=== PATIENT | female | born 1955 | race Caucasian/White ===

== ENCOUNTER 2017-08-07 11:43 | Emergency (ER) | payer MEDICARE ==
[~2017-08-07] VITALS: Ht 160 cm; Wt 71.0 kg
[2017-08-07 11:48] VITALS: BP 186/91; RESP 18; TEMP 97.8; O2SAT 99
[2017-08-07] MEDS ORDERED: METF1000 PO (12:05)
[2017-08-07] MEDS ORDERED: BRIL90TA PO (12:05)
[2017-08-07] MEDS ORDERED: ATEN25TA PO (12:05)
[2017-08-07] MEDS ORDERED: SIMV80TA PO (12:05)
[2017-08-07] MEDS ORDERED: PERC10TA27 PO (12:05)
[2017-08-07] MEDS ORDERED: OMEP40CA2 (12:05)
[2017-08-07] MEDS ORDERED: HYDR50TA3 PO (12:05)
[2017-08-07] MEDS ORDERED: GLIP5TAB8 PO (12:05)
[2017-08-07] MEDS ORDERED: RANO500 PO (12:05)
[2017-08-07] MEDS ORDERED: ASPI81CH6 CHEW (12:05)
[2017-08-07 12:10] VITALS: BP 159/73; PULSE 70; PULSE 73; RESP 18; O2SAT 97; O2SAT 98
--- NOTE | 2017-08-07 12:25 | PD ---
HPI Chief Complaint: Complaint Time Seen by Provider: 11:56 Travel History International Travel<30 days: No Contact w/Intl Traveler<30days: No Traveled to known affect area: No History of Present Illness HPI 61-year-old female that presents to the ED for evaluation of possible UTI. Per patient she has had polyuria and urgency but not really dysuria for the past 2 days. Per patient symptoms started last night. Per patient is now unusual for her to have to go frequently as she does state that she drinks a lot of water but what concerned her is that she has to go more frequently now and today she started seeing blood and darkening of the urine. She states that she has not had a UTI in some time. What concerned her a little bit as well as that she started having chest pain that she describes as pressure when she urinates. Otherwise she has no pain. She states that she has a history of heart disease and has stents in her heart. She takes blood thinners. Denies any back pain or neck pain. Denies any symptoms at this time. No fevers chills or sweats but states that she feels "weird". Denies any history of kidney stone. She states that she has urgency and feels like she does not empty her bladder and has to go frequently. This is new per patient. When the pressure comes up pain per patient is 4 out of 10. PFSH Past Medical History Cardiovascular Problems: Yes High Cholesterol: Yes Chest Pain: Yes Diabetes: Yes Patient Takes Glucophage: Yes Hypertension: Yes Medical other: Yes (THORACIC OUTLET SYNDROME) Influenza Vaccination: Yes Past Surgical History Cholecystectomy: Yes Coronary Stent: Yes (X6) Hysterectomy: Yes Thoracic Surgery: Yes (RIB REMOVED) Social History Alcohol Use: Yes Tobacco Use: No Substance Use: No Allergies-Medications (Allergen,Severity, Reaction): Coded Allergies: Penicillins (Verified Allergy, Unknown, 08/07/17) codeine (Verified Allergy, Unknown, 08/07/17) Reported Meds & Prescriptions Reported Meds & Active Scripts Active Pyridium (Phenazopyridine HCl) 100 Mg Tab 100 Mg PO Q8H PRN Cipro (Ciprofloxacin HCl) 500 Mg Tab 500 Mg PO BID 10 Days Reported Glipizide 5 Mg Tab 2.5 Mg PO DAILY Take 30 minutes before a meal Percocet (Oxycodone-Acetaminophen) 10-325 mg Tab 1 Tab PO Q6H PRN Aspirin Low Dose (Aspirin) 81 Mg Chew 81 Mg CHEW DAILY Omeprazole 40 Mg Cap 40 Mg BID Simvastatin 80 Mg Tab 80 Mg PO DAILY Ranexa ER 12 HR (Ranolazine) 500 Mg Tab 500 Mg PO BID Metformin (Metformin HCl) 1,000 Mg Tab 1,000 Mg PO BIDPC Hydrochlorothiazide 50 Mg Tab 50 Mg PO DAILY Atenolol 25 Mg Tab 25 Mg PO DAILY Brilinta (Ticagrelor) 90 Mg Tab 90 Mg PO BID Review of Systems Except as stated in HPI: all other systems reviewed are Neg Physical Exam Narrative GENERAL: Well groomed normal sized women. SKIN: Warm and dry. HEAD: Atraumatic. Normocephalic. EYES: Pupils equal and round. No scleral icterus. No injection or drainage. ENT: No nasal bleeding or discharge. Mucous membranes pink and moist. Tongue is midline. No uvula deviation. NECK: Trachea midline. No JVD. CARDIOVASCULAR: Regular rate and rhythm. No murmurs, S3, S4. RESPIRATORY: No accessory muscle use. Clear to auscultation. Breath sounds equal bilaterally. GASTROINTESTINAL: Abdomen soft, non-tender, nondistended. Hepatic and splenic margins not palpable. MUSCULOSKELETAL: Extremities without clubbing, cyanosis, or edema. No obvious deformities. Full range of motion of the upper and lower extremities bilaterally. 2+ pulses bilaterally. NEUROLOGICAL: Awake and alert. No obvious cranial nerve deficits. Motor grossly within normal limits. Five out of 5 muscle strength in the arms and legs. Normal speech. PSYCHIATRIC: Appropriate mood and affect; insight and judgment normal. Data Data Last Documented VS Vital Signs Date Time Temp Pulse Resp B/P (MAP) Pulse Ox O2 Delivery O2 Flow Rate FiO2 08/07/17 12:10 70 18 159/73 (101) 98 Room Air 08/07/17 11:48 97.8 Orders Orders Urinalysis - C+S If Indicated (08/07/17 11:56) Electrocardiogram (08/07/17 11:57) Complete Blood Count With Diff (08/07/17 11:57) Comprehensive Metabolic Panel (08/07/17 11:57) Ckmb (Isoenzyme) Profile (08/07/17 11:57) Troponin I (08/07/17 11:57) Prothrombin Time / Inr (Pt) (08/07/17 11:57) Act Partial Throm Time (Ptt) (08/07/17 11:57) Magnesium (Mg) (08/07/17 11:57) Iv Access Insert/Monitor (08/07/17 11:57) Ecg Monitoring (08/07/17 11:57) Oximetry (08/07/17 11:57) Urine Culture (08/07/17 12:10) Ciprofloxacin 400 Mg Premix (Cipro 400 M (08/07/17 13:15) Troponin I (08/07/17 13:20) Labs Laboratory Tests Test 08/07/17 12:10 08/07/17 12:15 Urine Color LOUIE Urine Turbidity CLOUDY Urine pH 5.5 Urine Specific [place] 1.013 Urine Protein 100 mg/dL Urine Glucose (UA) NEG mg/dL Urine Ketones TRACE mg/dL Urine Occult Blood MOD Urine Nitrite NEG Urine Bilirubin NEG Urine Urobilinogen LESS THAN 2.0 MG/DL Urine Leukocyte Esterase TRACE Urine RBC /hpf Urine WBC /hpf Urine WBC Clumps MOD Urine Squamous Epithelial Cells 8 /hpf Urine Bacteria FEW /hpf Microscopic Urinalysis Comment CULTURE INDICATED White Blood Count 13.8 TH/MM3 Red Blood Count 4.15 MIL/MM3 Hemoglobin 12.4 GM/DL Hematocrit 36.2 % Mean Corpuscular Volume 87.4 FL Mean Corpuscular Hemoglobin 29.9 PG Mean Corpuscular Hemoglobin Concent 34.2 % Red Cell Distribution Width 13.6 % Platelet Count 174 TH/MM3 Mean Platelet Volume 9.8 FL Neutrophils (%) (Auto) 73.1 % Lymphocytes (%) (Auto) 17.0 % Monocytes (%) (Auto) 8.7 % Eosinophils (%) (Auto) 0.7 % Basophils (%) (Auto) 0.5 % Neutrophils # (Auto) 10.1 TH/MM3 Lymphocytes # (Auto) 2.3 TH/MM3 Monocytes # (Auto) 1.2 TH/MM3 Eosinophils # (Auto) 0.1 TH/MM3 Basophils # (Auto) 0.1 TH/MM3 CBC Comment DIFF FINAL Differential Comment Prothrombin Time 9.9 SEC Prothromb Time International Ratio 1.0 RATIO Activated Partial Thromboplast Time 23.8 SEC Blood Urea Nitrogen 28 MG/DL Creatinine 1.19 MG/DL Random Glucose 139 MG/DL Total Protein 8.0 GM/DL Albumin 4.0 GM/DL Calcium Level 9.3 MG/DL Magnesium Level 1.2 MG/DL Alkaline Phosphatase 70 U/L Aspartate Amino Transf (AST/SGOT) 22 U/L Alanine Aminotransferase (ALT/SGPT) 27 U/L Total Bilirubin 0.3 MG/DL Sodium Level 140 MEQ/L Potassium Level 4.0 MEQ/L Chloride Level 103 MEQ/L Carbon Dioxide Level 23.8 MEQ/L Anion Gap 13 MEQ/L Estimat Glomerular Filtration Rate 46 ML/MIN Total Creatine Kinase 57 U/L Troponin I LESS THAN 0.02 NG/ML MDM Medical Decision Making Medical Screen Exam Complete: Yes Emergency Medical Condition: Yes Medical Record Reviewed: Yes Interpretation(s) EKG shows sinus rhythm with no sign of acute ischemia or arrhythmia noted by me and attending. CBC & BMP Diagram 08/07/17 12:15 Total Protein 8.0, Albumin 4.0, Calcium Level 9.3, Magnesium Level 1.2 L, Alkaline Phosphatase 70, Aspartate Amino Transf (AST/SGOT) 22, Alanine Aminotransferase (ALT/SGPT) 27, Total Bilirubin 0.3 UA shows signs of UTI. Troponin and CK-MB negative. Differential Diagnosis Kidney stone versus kidney infection versus UTI versus sepsis versus a typical chest pain versus ACS Narrative Course 61-year-old female that presents to the ED for evaluation of possible UTI. Patient was properly examined and was found to have signs and symptoms concerning for kidney infection. Chest pain appears to be very atypical. Patient only has discomfort when she urinates. Could be from straining. She does have a significant heart history. We will do troponin and EKG. labs ordered. Labs and EKG showed no sign of acute disease alert and what appears to be UTI. Second troponin will be ordered to rule out any sign of acute cardiac disease although this appears to be less likely. Patient was started on Cipro IV. Second troponin was negative for acute disease. Patient was reassured. At this time patient will be treated for this with Cipro and Pyridium. Told to follow-up with PCP. See ED if worsening symptoms. Diagnosis Primary Impression: Cystitis Additional Impression: Atypical chest pain Patient Instructions: General Instructions Additional Instructions: Take medication as prescribed. Follow-up with PCP. Drink plenty of fluids. See ED if worsening symptoms. Med/Other Pt SpecificInfo: Prescription(s) given Scripts Phenazopyridine (Pyridium) 100 Mg Tab 100 MG PO Q8H Y for DYSURIA, #15 TAB 0 Refills Prov: Anthony Beal MD 08/07/17 Ciprofloxacin (Cipro) 500 Mg Tab 500 MG PO BID for Infection for 10 Days, #20 TAB 0 Refills Prov: Anthony Beal MD 08/07/17 Disposition: 01 DISCHARGE HOME Condition: Willis Engel Aug 07, 2017 12:25
[2017-08-07 12:27] LABS: AUTOMATED NEUTROPHIL # 10.1 TH/MM3 (1.8-7.7); BASOPHIL # 0.1 TH/MM3 (0-0.2); BASOPHIL % 0.5 % (0.0-2.0); EOSINOPHIL # 0.1 TH/MM3 (0-0.4); EOSINOPHIL % 0.7 % (0.0-4.0); HEMATOCRIT 36.2 % (35.0-46.0); HEMOGLOBIN 12.4 GM/DL (11.6-15.3); LYMPHOCYTE # 2.3 TH/MM3 (1.0-4.8); MEAN CELL VOLUME 87.4 FL (80.0-100.0); MEAN CORPUSCULAR HEMOGLOBIN 29.9 PG (27.0-34.0); MEAN CORPUSCULAR HGB CONC 34.2 % (32.0-36.0); MEAN PLATELET VOLUME 9.8 FL (7.0-11.0); MONO % 8.7 % (0.0-8.0); MONOCYTE # 1.2 TH/MM3 (0-0.9); NEUT % 73.1 % (16.0-70.0); PLATELET COUNT 174 TH/MM3 (150-450); RED BLOOD COUNT 4.15 MIL/MM3 (4.00-5.30); RED CELL DISTRIBUTION WIDTH 13.6 % (11.6-17.2); WHITE BLOOD COUNT 13.8 TH/MM3 (4.0-11.0)
[2017-08-07 12:35] LABS: PROTHROMBIN TIME - PATIENT 9.9 SEC (9.8-11.6)
[2017-08-07 12:45] LABS: ALT (GPT) 27 U/L (10-53); AST (GOT) 22 U/L (15-37); BICARBONATE 23.8 MEQ/L (21.0-32.0); BLOOD UREA NITROGEN 28 MG/DL (7-18); CALCIUM 9.3 MG/DL (8.5-10.1); CHLORIDE 103 MEQ/L (98-107); CREATININE 1.19 MG/DL (0.50-1.00); GLOMERULAR FILTRATION RATE 46 ML/MIN (>89); GLUCOSE,RANDOM 139 MG/DL (74-106); MAGNESIUM 1.2 MG/DL (1.5-2.5); SODIUM (NA) 140 MEQ/L (136-145)
[2017-08-07 12:49] LABS: ALKALINE PHOSPHATASE 70 U/L (45-117); TOTAL BILIRUBIN ADULT 0.3 MG/DL (0.2-1.0); TROPONIN I LESS THAN 0.02 NG/ML (0.02-0.05)
[2017-08-07 12:59] LABS: BACTERIA, URINE FEW /hpf; BILIRUBIN, URINE NEG (NEG); BLOOD, URINE MOD (NEG); GLUCOSE,URINE NEG (NEG); KETONE, URINE TRACE mg/dL (NEG); NITRITE,URINE NEG (NEG); PH, URINE 5.5 (5.0-8.5); SQUAMOUS EPITHELIAL CELL URINE 8 /hpf (0-5); URINE LEUKOCYTE ESTERASE TRACE (NEG); WHITE BLOOD CELL CLUMPS MOD
[2017-08-07 13:02] LABS: URINE COLOR AMBER (YELLW/STRAW)
[2017-08-07] MEDS ORDERED: CIPR-9 PO (13:08)
[2017-08-07] MEDS ORDERED: PHEN0.4T PO (13:08)
[2017-08-07] MEDS ORDERED: CIPROFLOXACIN 400 MG PREMIX 200 ML IV ONE (13:15)
[2017-08-07 15:44] VITALS: BP 142/69; PULSE 68; RESP 17; O2SAT 98
--- NOTE | 2017-08-07 16:42 | PD ---
Data Data Last Documented VS Vital Signs Date Time Temp Pulse Resp B/P (MAP) Pulse Ox O2 Delivery O2 Flow Rate FiO2 08/07/17 15:44 68 17 142/69 (93) 98 Room Air 08/07/17 11:48 97.8 Orders Orders Urinalysis - C+S If Indicated (08/07/17 11:56) Electrocardiogram (08/07/17 11:57) Complete Blood Count With Diff (08/07/17 11:57) Comprehensive Metabolic Panel (08/07/17 11:57) Ckmb (Isoenzyme) Profile (08/07/17 11:57) Troponin I (08/07/17 11:57) Prothrombin Time / Inr (Pt) (08/07/17 11:57) Act Partial Throm Time (Ptt) (08/07/17 11:57) Magnesium (Mg) (08/07/17 11:57) Iv Access Insert/Monitor (08/07/17 11:57) Ecg Monitoring (08/07/17 11:57) Oximetry (08/07/17 11:57) Urine Culture (08/07/17 12:10) Ciprofloxacin 400 Mg Premix (Cipro 400 M (08/07/17 13:15) Troponin I (08/07/17 13:20) Ed Discharge Order (08/07/17 15:33) Labs Laboratory Tests Test 08/07/17 12:10 08/07/17 12:15 08/07/17 14:35 Urine Color LOUIE Urine Turbidity CLOUDY Urine pH 5.5 Urine Specific [place] 1.013 Urine Protein 100 mg/dL Urine Glucose (UA) NEG mg/dL Urine Ketones TRACE mg/dL Urine Occult Blood MOD Urine Nitrite NEG Urine Bilirubin NEG Urine Urobilinogen LESS THAN 2.0 MG/DL Urine Leukocyte Esterase TRACE Urine RBC /hpf Urine WBC /hpf Urine WBC Clumps MOD Urine Squamous Epithelial Cells 8 /hpf Urine Bacteria FEW /hpf Microscopic Urinalysis Comment CULTURE INDICATED White Blood Count 13.8 TH/MM3 Red Blood Count 4.15 MIL/MM3 Hemoglobin 12.4 GM/DL Hematocrit 36.2 % Mean Corpuscular Volume 87.4 FL Mean Corpuscular Hemoglobin 29.9 PG Mean Corpuscular Hemoglobin Concent 34.2 % Red Cell Distribution Width 13.6 % Platelet Count 174 TH/MM3 Mean Platelet Volume 9.8 FL Neutrophils (%) (Auto) 73.1 % Lymphocytes (%) (Auto) 17.0 % Monocytes (%) (Auto) 8.7 % Eosinophils (%) (Auto) 0.7 % Basophils (%) (Auto) 0.5 % Neutrophils # (Auto) 10.1 TH/MM3 Lymphocytes # (Auto) 2.3 TH/MM3 Monocytes # (Auto) 1.2 TH/MM3 Eosinophils # (Auto) 0.1 TH/MM3 Basophils # (Auto) 0.1 TH/MM3 CBC Comment DIFF FINAL Differential Comment Prothrombin Time 9.9 SEC Prothromb Time International Ratio 1.0 RATIO Activated Partial Thromboplast Time 23.8 SEC Blood Urea Nitrogen 28 MG/DL Creatinine 1.19 MG/DL Random Glucose 139 MG/DL Total Protein 8.0 GM/DL Albumin 4.0 GM/DL Calcium Level 9.3 MG/DL Magnesium Level 1.2 MG/DL Alkaline Phosphatase 70 U/L Aspartate Amino Transf (AST/SGOT) 22 U/L Alanine Aminotransferase (ALT/SGPT) 27 U/L Total Bilirubin 0.3 MG/DL Sodium Level 140 MEQ/L Potassium Level 4.0 MEQ/L Chloride Level 103 MEQ/L Carbon Dioxide Level 23.8 MEQ/L Anion Gap 13 MEQ/L Estimat Glomerular Filtration Rate 46 ML/MIN Total Creatine Kinase 57 U/L Troponin I LESS THAN 0.02 NG/ML LESS THAN 0.02 NG/ML MDM Medical Record Reviewed: Yes Supervised Visit with MICHELLE: Yes Narrative Course I, Dr. Beal, have reviewed the advance practice practitioner's documentation and am in agreement, met with the patient face to face, made the diagnosis, and the medical decision making was done by me. *My assessment and Findings: Vital Signs Date Time Temp Pulse Resp B/P (MAP) Pulse Ox O2 Delivery O2 Flow Rate FiO2 08/07/17 15:44 68 17 142/69 (93) 98 Room Air 08/07/17 15:44 68 17 142/69 (93) 98 08/07/17 12:10 70 18 159/73 (101) 98 Room Air 08/07/17 12:10 73 18 159/73 (101) 97 Room Air 08/07/17 12:05 18 08/07/17 11:48 97.8 18 186/91 (122) 99 CBC & BMP Diagram 08/07/17 12:15 Total Protein 8.0, Albumin 4.0, Calcium Level 9.3, Magnesium Level 1.2 L, Alkaline Phosphatase 70, Aspartate Amino Transf (AST/SGOT) 22, Alanine Aminotransferase (ALT/SGPT) 27, Total Bilirubin 0.3 Urinalysis shows UTI Troponin is less than 0.02 twice Please refer to mid-level note. The patient will be discharged with Cipro Diagnosis Primary Impression: Cystitis Additional Impression: Atypical chest pain Patient Instructions: General Instructions, Urinary Tract Infection in Women ( ED) Departure Forms: Tests/Procedures Additional Instruction: Take medication as prescribed. Follow-up with PCP. Drink plenty of fluids. See ED if worsening symptoms. Scripts Phenazopyridine (Pyridium) 100 Mg Tab 100 MG PO Q8H Y for DYSURIA, #15 TAB 0 Refills Prov: Anthony Beal MD 08/07/17 Ciprofloxacin (Cipro) 500 Mg Tab 500 MG PO BID for Infection for 10 Days, #20 TAB 0 Refills Prov: Anthony Beal MD 08/07/17 Disposition: 01 DISCHARGE HOME Condition: Stable Anthony Beal MD Aug 07, 2017 16:42
--- NOTE | 2017-08-08 00:24 | EKG ---
Date Performed: 08/07/2017 Time Performed: 12:08:06 PTAGE: 61 years EKG: Sinus rhythm NON-SPECIFIC ST/T WAVE CHANGES BORDERLINE ECG NO PREVIOUS TRACING DOCTOR: Jn Beal Interpretating Date/Time 08/08/2017 00:23:08
== END 2017-08-07 15:53 | disposition home or self-care (01) ==
LOC: NEPE 11:43
DX: N30.90 Cystitis, unspecified without hematuria (principal); R07.89 Other chest pain; E78.00 Pure hypercholesterolemia, unspecified; E11.9 Type 2 diabetes mellitus without complications; I10 Essential (primary) hypertension; Z79.84 Long term (current) use of oral hypoglycemic drugs; Z79.899 Other long term (current) drug therapy
CPT/HCPCS: 80053; 81001; 82550; 83735; 84484; 85025; 85610; 85730; 87077; 87086; 87186; 93005; 96365; 99284; J0744

== ENCOUNTER 2018-05-31 10:12 | Observation (INO) ==
[2018-05-31] MEDS ORDERED: Aspirin 325 MG Tablet PO ONE (10:27)
[2018-05-31 10:46] LABS: Baso % (Auto) 0.5 % (0.0-2.0); Eos # (Auto) 0.1 th/mm3 (0.0-0.4); Eos % (Auto) 1.3 % (0.0-4.0); Hematocrit 38.7 % (35.0-46.0); Hemoglobin 13.3 gm/dL (11.6-15.3); Lymph # (Auto) 2.3 th/mm3 (1.0-4.8); Lymph % (Auto) 34.8 % (9.0-44.0); Mean Corpuscular HGB Conc 34.5 % (32.0-36.0); Mean Corpuscular Hemoglobin 31.1 pg (27.0-34.0); Mean Corpuscular Volume 90.2 fL (80.0-100.0); Mono # (Auto) 0.7 th/mm3 (0.0-0.9); Mono % (Auto) 11.3 % (0.0-8.0); Neut # (Auto) 3.4 th/mm3 (1.8-7.7); Neut % (Auto) 52.1 % (16.0-70.0); Platelet Count 195 th/mm3 (150-450); Red Blood Count 4.28 mil/mm3 (4.00-5.30); White Blood Count 6.5 th/mm3 (4.0-11.0)
--- NOTE | 2018-05-31 11:02 | ED ---
HPI General Chief Complaint: Chest Pain Stated Complaint: Chest pain Time Seen by Provider: 05/31/18 10:27 Source: patient and family Mode of arrival: ambulatory Limitations: no limitations History of Present Illness HPI narrative: 62 y/o female notes intermittent chest pain for the past couple weeks. She states got worse this morning so came here. was scheduled for a cath today with her security professionals dr moreland. she denies other symptoms MD complaint: Reports chest pain STEMI Alert: No Onset (ago): week(s) Duration: intermittent Pain location: Reports left chest Severity: moderate Quality: Reports tightness Pain radiation: Reports none Relieving factors: nothing Exacerbating factors: exertion Related Data Home Medications Medication Instructions Recorded Confirmed aspirin [Aspir-81] 81 mg PO DAILY 05/31/18 05/31/18 atenolol 25 mg PO DAILY 05/31/18 05/31/18 clopidogrel 75 mg PO DAILY 05/31/18 05/31/18 dulaglutide [Trulicity] 1.5 mg SUBCUT QWEEK 05/31/18 05/31/18 hydrochlorothiazide 50 mg PO DAILY 05/31/18 05/31/18 metformin 1,000 mg PO QPM 05/31/18 05/31/18 omeprazole 40 mg PO BID 05/31/18 05/31/18 oxycodone-acetaminophen 1 tab PO Q6H PRN 05/31/18 05/31/18 ranolazine [Ranexa] 500 mg PO BID 05/31/18 05/31/18 Allergies Allergy/AdvReac Type Severity Reaction Status Date / Time codeine Allergy Unknown Vomiting Verified 05/31/18 10:28 Penicillins Allergy Unknown Vomiting Verified 05/31/18 10:28 Review of Systems ROS: all other systems reviewed are negative [facility] Medical History Medical History FH: cholecystectomy (Acute) GERD (gastroesophageal reflux disease) (Acute) H/O: hysterectomy (Acute) Hypercholesteremia (Acute) Surgical History Surgical History Hx of cardiac cath (Acute) Social History Social History Substance History: No History of Abuse Second Hand Smoke Exposure: No Smoking Status: Former smoker How Often Do You Have a Drink Containing Alcohol: 2 to 4 times a month Recent Travel in [email or web address] within the Last 8 Weeks: No Recent Out of Country Travel within the Last 8 Weeks: No Immunization History Tetanus Immunization: Unsure Exam Narrative Exam Narrative: GENERAL: 62 y/o female in no apparent distress SKIN: Focused skin assessment warm/dry. HEAD: Atraumatic. Normocephalic. EYES: Pupils equal and round. No scleral icterus. No injection or drainage. ENT: No nasal bleeding or discharge. Mucous membranes pink and moist. NECK: Trachea midline. No JVD. CARDIOVASCULAR: Regular rate and rhythm. No murmur appreciated. RESPIRATORY: No accessory muscle use. Clear to auscultation. Breath sounds equal bilaterally at apices. GASTROINTESTINAL: Abdomen soft, non-tender, nondistended. MUSCULOSKELETAL: No obvious deformities. No clubbing. No cyanosis. NEUROLOGICAL: Awake and alert. No obvious cranial nerve deficits. Motor grossly within normal limits. Normal speech. PSYCHIATRIC: Appropriate mood and affect; insight and judgment normal. Course Reevaluation(s) Reevaluation #1: patient updated and agrees to admit Reevaluation #2: labor gang supervisor states not on schedule today or tommorrow Consultations Consultation #1: dr moreland states to admit and call labor gang supervisor to find out who put on schedule Consultation #2: dr leggett agrees to admit Initial Documented Vital Signs Temperature 97.7 F 05/31/18 10:20 Pulse Rate 60 05/31/18 10:20 Blood Pressure 211/93 H 05/31/18 10:20 Pulse Oximetry 98 05/31/18 10:20 Last Documented Vital Signs Temperature 97.7 F 05/31/18 10:20 Pulse Rate 55 L 05/31/18 11:10 Respiratory Rate 16 05/31/18 11:10 Blood Pressure 163/83 H 05/31/18 11:10 Pulse Oximetry 97 05/31/18 11:10 Medical Decision Making MDM Narrative Medical decision making narrative: will check labs, cxr and dose with nitro and aspirin and reeval Medical Screen Exam Complete: Yes Emergency Medical Condition: Yes Differential Diagnosis Differential Diagnosis: cardiac, musculoskeletal, gasritis... Lab Data Result diagrams: 05/31/18 10:30 05/31/18 10:30 Lab Results 05/31/18 05/31/18 05/31/18 Range/Units 10:30 10:30 10:30 WBC 6.5 (4.0-11.0) th/mm3 RBC 4.28 (4.00-5.30) mil/mm3 Hgb 13.3 (11.6-15.3) gm/dL Hct 38.7 (35.0-46.0) % MCV 90.2 (80.0-100.0) fL MCH 31.1 (27.0-34.0) pg MCHC 34.5 (32.0-36.0) % RDW 14.0 (11.6-17.2) % Plt Count 195 (150-450) th/mm3 MPV 10.0 (7.0-11.0) fL Neut % (Auto) 52.1 (16.0-70.0) % Lymph % (Auto) 34.8 (9.0-44.0) % Charles % (Auto) 11.3 H (0.0-8.0) % Eos % (Auto) 1.3 (0.0-4.0) % Baso % (Auto) 0.5 (0.0-2.0) % Neut # (Auto) 3.4 (1.8-7.7) th/mm3 Lymph # (Auto) 2.3 (1.0-4.8) th/mm3 Charles # (Auto) 0.7 (0.0-0.9) th/mm3 Eos # (Auto) 0.1 (0.0-0.4) th/mm3 Baso # (Auto) 0.0 (0.0-0.2) th/mm3 WBC Differential . Differential Comment Auto diff final PT (9.8-11.6) sec INR Ratio APTT (23.4-31.7) sec Sodium 139 (136-145) meq/L Potassium 4.4 (3.5-5.1) meq/L Chloride 102 (98-107) meq/L Carbon Dioxide 27.5 (21.0-32.0) meq/L Anion Gap 10 (5-15) meq/L BUN 27 H (7-18) mg/dL Creatinine 1.30 H (0.50-1.00) mg/dL Estimated GFR 42 L (>89) mL/min Random Glucose 115 H (74-106) mg/dL Calcium 9.5 (8.5-10.1) mg/dL Magnesium 1.5 (1.5-2.5) mg/dL Total Bilirubin 0.4 (0.2-1.0) mg/dL AST 32 (15-37) U/L ALT 23 (10-53) U/L Alkaline Phosphatase 66 (45-117) U/L Total Creatine Kinase 77 (26-192) U/L Troponin I Less than 0.02 L (0.02-0.05) ng/mL B-Natriuretic Peptide 75 (0-100) pg/mL Total Protein 8.3 H (6.4-8.2) g/dL Albumin 4.1 (3.4-5.0) g/dL 05/31/18 Range/Units 11:05 WBC (4.0-11.0) th/mm3 RBC (4.00-5.30) mil/mm3 Hgb (11.6-15.3) gm/dL Hct (35.0-46.0) % MCV (80.0-100.0) fL MCH (27.0-34.0) pg MCHC (32.0-36.0) % RDW (11.6-17.2) % Plt Count (150-450) th/mm3 MPV (7.0-11.0) fL Neut % (Auto) (16.0-70.0) % Lymph % (Auto) (9.0-44.0) % Charles % (Auto) (0.0-8.0) % Eos % (Auto) (0.0-4.0) % Baso % (Auto) (0.0-2.0) % Neut # (Auto) (1.8-7.7) th/mm3 Lymph # (Auto) (1.0-4.8) th/mm3 Charles # (Auto) (0.0-0.9) th/mm3 Eos # (Auto) (0.0-0.4) th/mm3 Baso # (Auto) (0.0-0.2) th/mm3 WBC Differential Differential Comment PT 10.0 (9.8-11.6) sec INR 1.0 Ratio APTT 23.9 (23.4-31.7) sec Sodium (136-145) meq/L Potassium (3.5-5.1) meq/L Chloride (98-107) meq/L Carbon Dioxide (21.0-32.0) meq/L Anion Gap (5-15) meq/L BUN (7-18) mg/dL Creatinine (0.50-1.00) mg/dL Estimated GFR (>89) mL/min Random Glucose (74-106) mg/dL Calcium (8.5-10.1) mg/dL Magnesium (1.5-2.5) mg/dL Total Bilirubin (0.2-1.0) mg/dL AST (15-37) U/L ALT (10-53) U/L Alkaline Phosphatase (45-117) U/L Total Creatine Kinase (26-192) U/L Troponin I (0.02-0.05) ng/mL B-Natriuretic Peptide (0-100) pg/mL Total Protein (6.4-8.2) g/dL Albumin (3.4-5.0) g/dL Imaging Data Radiologist's impression: Chest X-Ray 05/31/18 10:27 CONCLUSION: No acute cardiopulmonary disease. Discharge Plan Discharge Disposition Patient Disposition: ED Admit(ED Internal Use Only) Discharge Details Diagnosis: Chest pain Physicians Team ED Provider: Madyson Pinzon Primary Care Provider: Nara Edgar Rxs /Orders / Referrals /Forms Prescriptions: No Action hydrochlorothiazide 50 mg Tablet 50 mg PO DAILY RF: 0 atenolol 25 mg Tablet 25 mg PO DAILY RF: 0 clopidogrel 75 mg Tablet 75 mg PO DAILY RF: 0 omeprazole 40 mg Capsule,Delayed Release(Dr/Ec) 40 mg PO BID RF: 0 aspirin [Aspir-81] 81 mg Tablet,Delayed Release (Dr/Ec) 81 mg PO DAILY RF: 0 oxycodone-acetaminophen 10-325 mg Tablet 1 tab PO Q6H PRN (Reason: Pain) RF: 0 metformin 1,000 mg Tablet Extended Release 24hr 1,000 mg PO QPM RF: 0 ranolazine [Ranexa] 500 mg Tablet Extended Release 12 Hr 500 mg PO BID RF: 0 dulaglutide [Trulicity] 1.5 mg/0.5 mL Pen Injector 1.5 mg SUBCUT QWEEK RF: 0 Discharge Instructions Patient Printed Instructions: Chest Pain (ED) Discharge Interventions Interventions: Vital Signs Last Done: 05/31/18 10:20 Status ED Status: Pending Admission
--- NOTE | 2018-05-31 11:05 | XR ---
EXAM DATE: 05/31/2018 11:03 AM EST AGE/SEX: 62 years / Female INDICATIONS: Chest pain. CLINICAL DATA: This is the patient's initial encounter. Patient reports that signs and symptoms have been present for 1 day and indicates a pain score of 4/10. MEDICAL/SURGICAL HISTORY: None. None. COMPARISON: . FINDINGS: The cardiac silhouette is normal in transverse diameter. The lungs are free of acute parenchymal opac ity. No effusions are identified. There is prominence of the aortic knob is with calcification charac teristic of atherosclerotic vascular disease. CONCLUSION: No acute cardiopulmonary disease. Electronically signed by: Jordan Hernandez MD Board Certified Radiologist 05/31/2018 11:04 AM EST
[2018-05-31 11:20] LABS: Alanine Aminotransferase 23 U/L (10-53); Albumin 4.1 g/dL (3.4-5.0); Alkaline Phosphatase 66 U/L (45-117); Anion Gap 10 meq/L (5-15); Aspartate Aminotransferase 32 U/L (15-37); Blood Urea Nitrogen 27 mg/dL (7-18); Calcium 9.5 mg/dL (8.5-10.1); Carbon Dioxide 27.5 meq/L (21.0-32.0); Chloride 102 meq/L (98-107); Glomerular Filtration Rate 42 mL/min (>89); Glucose,Random 115 mg/dL (74-106); Magnesium 1.5 mg/dL (1.5-2.5); Sodium 139 meq/L (136-145); Total Protein 8.3 g/dL (6.4-8.2)
[2018-05-31 11:21] LABS: Creatine Kinase 77 U/L (26-192); Potassium 4.4 meq/L (3.5-5.1)
[2018-05-31 11:27] LABS: Activated Partial Thrombo Time 23.9 sec (23.4-31.7)
[2018-05-31] MEDS ORDERED: Acetaminophen 500 MG Tablet PO ONE (11:41)
[2018-05-31] MEDS ORDERED: Dextrose 50% in Water 50 ML Vial IV.PUSH PRN (12:30)
[2018-05-31] MEDS ORDERED: Acetaminophen 325 MG Tablet PO PRN (12:31)
[2018-05-31] MEDS ORDERED: Morphine Inj 4 MG/ML Vial IV.PUSH PRN (12:33)
[2018-05-31] MEDS: oxyCODONE/Acetaminophen 10/325 Tablet PO PRN ×2 (13:44→21:30)
[2018-05-31] MEDS: Heparin - SQ 10,000 UNITS/ML Vial SQ SCH ×3 (13:45→21:30)
--- NOTE | 2018-05-31 14:10 | P.HPIM ---
History of Present Illness Primary Care Physician: Nara Edgar MD Chief Complaint: Chest pressure History of Present Illness: The patient is a 62-year-old female with a past medical history of CAD status post six stents who is presenting to the hospital with chest pressure. The patient says that her last stent was about 2 years ago. She says over the past month she has been experiencing chest pressure. She says the chest pressure is really located in her back and radiates to her left arm and left neck. She does have some associated shortness of breath with it. She says the pressure comes and goes. She says the pressure gets better when she takes nitro. She says she has been on Ranexa since her first stent about 8 years ago. She says she went to a ultimate hoops referee in the area but did not go back because there were cockroaches in the office. She then went to another ultimate hoops referee yesterday who wanted to admit her to the hospital for catheterization but she did not want to at that time. At 5 AM this morning she experienced severe chest pressure that woke her up from sleep and came to the hospital. She currently feels better than she did when she presented to the emergency department. Diagnosis (1) H/O: hysterectomy: Review of Systems Review of Systems: all other systems reviewed are negative [facility] Medical History Medical History CAD (coronary artery disease) (Acute) Diabetes (Acute) FH: cholecystectomy (Acute) GERD (gastroesophageal reflux disease) (Acute) H/O: hysterectomy (Acute) HLD (hyperlipidemia) (Acute) HTN (hypertension) (Acute) Hypercholesteremia (Acute) Surgical History Surgical History Hx of cardiac cath (Acute) Family History Family History Other Colon cancer Social History Social History Substance History: No History of Abuse Second Hand Smoke Exposure: No Smoking Status: Former smoker How Often Do You Have a Drink Containing Alcohol: 2 to 4 times a month Recent Travel in [facility] within the Last 8 Weeks: No Recent Out of Country Travel within the Last 8 Weeks: No Immunization History Tetanus Immunization: Unsure Medications and Allergies Allergies Allergy/AdvReac Type Severity Reaction Status Date / Time codeine Allergy Unknown Vomiting Verified 05/31/18 10:28 Penicillins Allergy Unknown Vomiting Verified 05/31/18 10:28 Home Medications Medication Instructions Recorded Confirmed Type aspirin [Aspir-81] 81 mg PO DAILY 05/31/18 05/31/18 History atenolol 25 mg PO DAILY 05/31/18 05/31/18 History clopidogrel 75 mg PO DAILY 05/31/18 05/31/18 History dulaglutide [Trulicity] 1.5 mg SUBCUT QWEEK 05/31/18 05/31/18 History hydrochlorothiazide 50 mg PO DAILY 05/31/18 05/31/18 History metformin 1,000 mg PO QPM 05/31/18 05/31/18 History omeprazole 40 mg PO BID 05/31/18 05/31/18 History oxycodone-acetaminophen 1 tab PO Q6H PRN 05/31/18 05/31/18 History ranolazine [Ranexa] 500 mg PO BID 05/31/18 05/31/18 History Active Medications: Active Medications Acetaminophen (Tylenol) 650 mg PO Q4H PRN PRN Reason: Temp > 100.4, pain 1-2 Aspirin (Ecotrin) 81 mg PO DAILY SHANNON Atenolol (Tenormin) 25 mg PO DAILY SHANNON Clopidogrel Bisulfate (Plavix) 75 mg PO DAILY SHANNON Dextrose (D50w Vial) 50 ml IV.PUSH UNSCH PRN PRN Reason: PER HYPOGLYCEMIA PROTOCOL Glucagon (Glucagon Inj) 1 mg OTHER PRN PRN PRN Reason: for Hypoglycemia Protocol Heparin Sodium (Porcine) (Heparin Inj) 5,000 units SQ Q8H [facility] Last Admin: 05/31/18 13:45 Dose: 5,000 units Hydromorphone HCl (Dilaudid Pf Inj) 1 mg IV.PUSH Q4H PRN PRN Reason: BREAKTHROUGH PAIN Insulin Aspart (Novolog Insulin Correctional Sugar Inj) 0 unit SQ Q6HR [facility]; Protocol Ondansetron HCl (Zofran Inj) 4 mg IV.PUSH Q6H PRN PRN Reason: NAUSEA OR VOMITING Oxycodone/Acetaminophen (Percocet 10/325 Mg) 1 tab PO Q4H PRN PRN Reason: pain 6-10 Last Admin: 05/31/18 13:44 Dose: 1 tab Oxycodone/Acetaminophen (Percocet 5/325 Mg) 1 tab PO Q4H PRN PRN Reason: pain 3-5 Pantoprazole Sodium (Protonix) 40 mg PO BID SHANNON Ranolazine (Ranexa) 500 mg PO BID SHANNON Senna/Docusate Sodium (Kimmy-Colace) 1 tab PO BID SHANNON Sodium Chloride (Ns Flush) 2 ml IV.FLUSH BID SHANNON Sodium Chloride (Ns Flush) 2 ml IV.FLUSH PRN PRN PRN Reason: FLUSH AFTER USING IV ACCESS Physical Exam Vital signs: Vital Signs 05/31/18 10:20 05/31/18 10:30 05/31/18 10:46 Temperature 97.7 F Pulse Rate 60 63 Respiratory Rate 21 Blood Pressure 211/93 H 223/105 H Pulse Oximetry 98 99 99 05/31/18 11:10 05/31/18 13:28 Temperature Pulse Rate 55 L Respiratory Rate 16 Blood Pressure 163/83 H 151/73 H Pulse Oximetry 97 Intake & Output 05/30/18 05/31/18 05/31/18 18:59 06:59 18:59 Weight 68.492 kg Narrative: GENERAL: No apparent distress SKIN: Focused skin assessment warm/dry. HEAD: Atraumatic. Normocephalic. EYES: Pupils equal and round. No scleral icterus. No injection or drainage. ENT: No nasal bleeding or discharge. Mucous membranes pink and moist. NECK: Trachea midline. No JVD. CARDIOVASCULAR: Regular rate and rhythm. No murmur appreciated. RESPIRATORY: No accessory muscle use. Clear to auscultation. Breath sounds equal bilaterally at apices. GASTROINTESTINAL: Abdomen soft, non-tender, nondistended. MUSCULOSKELETAL: No obvious deformities. No clubbing. No cyanosis. NEUROLOGICAL: Awake and alert. No obvious cranial nerve deficits. Motor grossly within normal limits. Normal speech. PSYCHIATRIC: Appropriate mood and affect; insight and judgment normal. Results Labs CBC & Chem 7: 05/31/18 10:30 05/31/18 10:30 Imaging Impressions Chest X-Ray 05/31/18 10:27 CONCLUSION: No acute cardiopulmonary disease. Caprini VTE Risk Assessment Caprini VTE Risk Assessment: Moderate/High Risk (score >= 2) Caprini Risk Assessment Model: Point Value = 1 Point Value = 2 Point Value = 3 Point Value = 5 Age 41-60 Minor surgery BMI > 25 kg/m2 Swollen legs Varicose veins or History of unexplained or recurrent spontaneous Oral contraceptives or hormone replacement Sepsis (< 1 month) Serious lung disease, including pneumonia (< 1 month) Abnormal pulmonary function Acute myocardial infarction Congestive heart failure (< 1 month) History of inflammatory bowel disease Medical patient at bed rest Age 61-74 Arthroscopic surgery Major open surgery (> 45 min) Laparoscopic surgery (> 45 min) Malignancy Confined to bed (> 72 hours) Immobilizing plaster cast Central venous access Age >= 75 History of VTE Family history of VTE Factor V Leiden Prothrombin [id number] Lupus anticoagulant Anticardiolipin antibodies Elevated serum homocysteine Heparin-induced thrombocytopenia Other congenital or acquired thrombophilia Stroke (< 1 month) Elective arthroplasty Hip, pelvis, or leg fracture Acute spinal cord injury (< 1 month) Prophylaxis Regimen: Total Risk Factor Score Risk Level Prophylaxis Regimen 0-1 Low Early ambulation 2 Moderate Order ONE of the following: *Sequential Compression Device (SCD) *Heparin 5000 units SQ BID 3-4 Higher Order ONE of the following medications: *Heparin 5000 units SQ TID *Enoxaparin/Lovenox 40 mg SQ daily (WT < 150 kg, CrCl > 30 mL/min) *Enoxaparin/Lovenox 30 mg SQ daily (WT < 150 kg, CrCl > 10-29 mL/min) *Enoxaparin/Lovenox 30 mg SQ BID (WT < 150 kg, CrCl > 30 mL/min) AND/OR *Sequential Compression Device (SCD) 5 or more Highest Order ONE of the following medications: *Heparin 5000 units SQ TID (Preferred with Epidurals) *Enoxaparin/Lovenox 40 mg SQ daily (WT < 150 kg, CrCl > 30 mL/min) *Enoxaparin/Lovenox 30 mg SQ daily (WT < 150 kg, CrCl > 10-29 mL/min) *Enoxaparin/Lovenox 30 mg SQ BID (WT < 150 kg, CrCl > 30 mL/min) AND *Sequential Compression Device (SCD) Assessment and Plan (1) H/O: hysterectomy: Code(s): Z90.710 - Acquired absence of both cervix and uterus Status: Acute Plan CAD S/p multiple stents in the past. EKG with NSR, no ischemia. CXR unremarkable. -cardiology consult pending. -telemetry. -Pain control. -Oxygen as needed. -Continue cardiac regimen including aspirin, Plavix, atenolol and Ranexa. Hypertensive emergency Blood pressure was 223/105 in the emergency department. -Pain control. -Continue atenolol. -Add amlodipine 5 mg p.o. daily. -Clonidine as needed. Renal insufficiency Unsure of baseline. Creatinine 1.19 in July. -IV fluids and monitor BMP. -Avoid nephrotoxins. -Hold hydrochlorothiazide. Diabetes Ruled at this time. -Hold Trulicity and metformin. -Insulin sliding scale. PPx: Heparin
[2018-05-31] MEDS: Atenolol 25 MG Tablet PO SCH (14:42)
[2018-05-31] MEDS: amLODIPine 5 MG Tablet PO SCH (14:42)
[2018-05-31] MEDS: Mag Sulf 1 gm/100 ml Premix 100 ML IV.SIG SCH ×2 (16:10→17:20)
[2018-05-31] MEDS: HYDROmorphone PF Inj 2 MG/ML Vial IV.PUSH PRN ×2 (16:10→22:50)
[2018-05-31] MEDS: Sod Chloride 0.9% Inj 1,000 ML IV.CONT SCH ×2 (16:11→21:34)
[2018-05-31] MEDS ORDERED: diazePAM 5 MG Tablet PO SCH (16:45)
[2018-05-31] MEDS: Insulin NovoLOG Aspart Correctional Sugar Inj SQ SCH (17:22)
[2018-05-31] MEDS: Senna/Docusate Sodium 8.6/50 MG Tablet PO SCH (20:09)
[2018-05-31] MEDS: Ranolazine 500 MG 12HR ER Tablet PO SCH (21:24)
[2018-06-01] MEDS: Insulin NovoLOG Aspart Correctional Sugar Inj SQ SCH ×3 (00:29→12:30)
[2018-06-01] MEDS: Sod Chloride 0.9% Inj 1,000 ML IV.CONT SCH ×3 (00:30→11:40)
[2018-06-01] MEDS: HYDROmorphone PF Inj 2 MG/ML Vial IV.PUSH PRN (03:59)
[2018-06-01] MEDS: Heparin - SQ 10,000 UNITS/ML Vial SQ SCH (05:35)
[2018-06-01] MEDS ORDERED: Heparin/NS PF Inj 1,000 ML ONE (07:19)
--- NOTE | 2018-06-01 07:20 | MB ---
cc: Nam Man MD DATE: 05/31/2018 CHIEF COMPLAINT: Chest pain. HISTORY OF PRESENT ILLNESS: This patient is a 62-year-old woman. She has history of hypertension, diabetes and hyperlipidemia and she has had multiple previous stents. These started in the year 2007. Her last stents were in 2017. This was in the [place]. We do not have any of those records. She mentions at least one of her stents was placed inside of one of her old stents. She had no angina until a month ago. Her angina, she describes, as pain across the upper back, indigestion-like. It is relieved with nitroglycerin. It started up about a month ago. This morning, she got woken up by it, took nitro, and then it came back again, took nitro a second time. Finally decided to come in the hospital. Blood pressure was markedly elevated on admission. It has since come down. PAST MEDICAL HISTORY: Diabetes, hypertension, hyperlipidemia, gastroesophageal reflux disease, arthritis, sciatica. PAST SURGICAL HISTORY: Cholecystectomy, hysterectomy, cystectomy and hiatal hernia repair. SOCIAL HISTORY: She quit smoking 10 years ago. FAMILY HISTORY: Heart disease in both her parents, and strokes. ALLERGIES: CODEINE AND PENICILLIN. REVIEW OF SYSTEMS: Noncontributory. PHYSICAL EXAMINATION: GENERAL: Well-developed, well-nourished white female, in no acute distress. VITAL SIGNS: Charted. HEENT: Unremarkable. NECK: No JVD or bruits. CHEST: Clear to auscultation. CARDIOVASCULAR: Normal S1, S2. Regular rate and rhythm. No murmurs or gallops appreciated. ABDOMEN: Soft, nontender. EXTREMITIES: No clubbing, cyanosis or edema. Pulses are intact. DIAGNOSTIC DATA: EKG shows sinus rhythm with no acute changes. Troponins negative. Creatinine is 1.3. CBC is unremarkable. Chest x-ray is negative. IMPRESSION: A 62-year-old woman with history of 6 previous stents, presented with rest pain/unstable angina. Multiple risk factors. PLAN: Diagnostic catheterization tomorrow morning, possible intervention as indicated. She has had them done both in the radial and femoral perspective and she was quite adamant that she would prefer to have it done through her groin and I told her we could do that. Informed consent has been obtained. Risks discussed. MD DOROTHY Villareal/sb/ll , 04:45 PM , 04:53 PM
[2018-06-01] MEDS ORDERED: fentaNYL Citrate Inj 100 MCG/2 ML Ampul ONE (07:21)
[2018-06-01] MEDS ORDERED: Iohexol 350 MG/ML 100 ML Vial (for Cath Lab) IVCONTRAST ONE (07:45)
--- NOTE | 2018-06-01 08:26 | CATHPROC ---
[email or web address] HIS Report Study Information Study Number Admission Scheduled Start Study Start [id number] May 31 2018 1:27PM 06/01/2018 Jun 01 2018 6:56AM [facility] Cardiac Catheterization Admit Source Facility Department Other [facility] Physician and Clinical Staff Initial Nam [employer] Practitioner Henry Dorado,RN Recorder Katherine Oropeza ,RT(R) Scrub Katherin Russell Procedures Performed Procedure Location (Site) Vessel Name Angiogram LV LV Ventricle Coronary Angiograms LCA Left Coronary Coronary Angiograms RCA Right Coronary L Heart Cath Equipment Time Milieu Therapist Description Size Mfg Part Number Used/Scraped TRANSDUCER, TRUWAVE [id number] 06:59 RODRÍGUEZ MODI * Used W/STOCKCOCK *[id number] INTRODUCER SET, 07:50 [employer] FR 5 [id number] *[id number] Used MICROPUNCTURE STIFF [id number] *[id number] [id number] *[id number] PIGTAIL ANG. 145 INFINITI 534-652S CATHETER *[id number] 08:08 DAIPraccel/[employer]. [employer] ANGIOSEAL, FR6 VIP FR 6 Used *[id number] 06:59 [employer] BLANKET,WARM AIR CCL * Used *[id number] 06:59 [employer] PACK, CCL CUSTOM * Used *[id number] 06:59 [employer] PACER PEN, SKIN DUAL W/ RULER * Used *[id number] 06:59 [employer] WIRE, 3MMJ .035 180CM 180CM Used *[id number] 06:59 NAMIC MANIFOLD, 4 PORT * Used *[id number] TUBING, 72" PRESSURE [id number] 07:21 NAMIC 72" Used INJECTION (STEEL RULE DIE MAKER APPRENTICE) [id number] 06:59 NYCOMED OMNIPAQUE, 350 MG, 150ML 150ML [id number] Used 08:09 NYCOMED OMNIPAQUE, 350 MG, 50ML 50ML [id number] Used [id number] 07:22 TERUMO MEDICAL SHEATH, FR6 TERUMO (10CM) FR 6 Used *[id number] Equipment Model, Serial, Lot Number and Expiration Data Description Model Number Serial Number Lot Number Expiration Date ANGIOSEAL, FR6 VIP [id number] 09-09-2018 History: Current Medications Medication Dosage/Unit Route Frequency Last Date/Time Taken ASA History: Allergies Allergy Reaction Penicillins Vomiting codeine Vomiting History: Risk Factors Hypertension Dyslipidemia Previous UT Previous Heart Failure Yes Yes Yes No Prior PCI Prior PCIDate Yes 04/12/2015 Cerebrovascular Peripheral Artery Chronic Lung On Dialysis Diabetes Disease Disease Disease No No No No Yes History: Stress Tests Stress or Imaging Studies Performed No Labs Hgb (g/dl) Hct (%) WBC (l/cumm) Platelets (thousands) 11.60-17.00 35.00-51.00 4.00-11.00 150.00-450.00 13.3 38.7 6.5 195 Glucose (mg/dl) BUN (mg/dl) Creatinine (mg/dl) BUN:Creatinine (1:x) 74.00-106.00 7.00-18.00 0.50-1.30 10.00-20.00 132 27 1.3 20.8 Na (meq/l) K (meq/l) 136.00-145.00 3.50-5.10 139 4.4 INR (PTT:PT) 0.90-1.10 1 Troponin I (ng/ml) CPK-MB (ng/ML) 0.02-0.05 0.50-3.60 0.02 Not Drawn Medication Medication Total Dose (Bolus/Oral) Medication Total Dosage/Unit 1% XYLOCAINE 20 mL FENTANYL 25 mcg OXYGEN 1 l/min VERSED 2 mg Medications (Bolus/Oral) Medication Time Given Dosage/Unit Administered By Reason VERSED 06/01/2018 7:41:23 AM 1 mg Estrada, Henry 1 mg VERSED given in lab by Henry Dorado RN via Peripheral IV. FENTANYL 06/01/2018 7:42:43 AM 25 mcg Estrada, Henry 25 mcg FENTANYL given in lab by Henry Dorado RN via Peripheral IV. VERSED 06/01/2018 7:43:22 AM 1 mg Estrada, Henry 1 mg VERSED given in lab by Henry Dorado RN via Peripheral IV. 1% XYLOCAINE 06/01/2018 7:46:18 AM 20 mL Nam Man 20 mL 1% XYLOCAINE given in lab by Nam Man in Right Groin via Subcutaneous. OXYGEN 06/01/2018 7:47:33 AM 1 l/min Estrada, Henry 1 l/min OXYGEN given in lab by Henry Dorado RN via Nasal. Medication (Drip) Medication Time Given Dosage/Unit Concentration/Unit Diluent (ml) Solution IV Solutions 06/01/2018 7:12:03 AM 50 mL (IV) 1000 NaCl .9 Patient arrived on IV Solutions via Peripheral IV. Pump/Drip Flow using NaCl .9. Initial Case Assessment Cardiovascular HR Rhythm NIBP Chest Pain 65 reg 164/83 0 Edema Present Skin color Skin None Normal Warm Dry Circulatory - Right Pulses Dorsalis Pedis Femoral 3 2 Scale (0,1,2,3,4,d) Circulatory - Left Pulses Dorsalis Pedis Femoral 3 2 Scale (0,1,2,3,4,d) Circulatory - Lower Extremities Color Lower Right Color Lower Left Normal Normal Neurological State Oriented to time-place- Alert Moves all extremities person Respiration - General Respiration Rate SpO2 (%) (B/min) 10 96 Chronological Log Time Study Chronological Log 7:11:32 Patient arrived via Bed. 7:11:32 Patient Name, D.O.B, / Armband Verified By R.N. 7:11:53 Consent signed by the physician and the patient and verified by the [facility] staff. 7:11:54 Pre-op and post- op instructions given; patient acknowledges understanding of instructions. 7:11:58 Patient has been NPO for More than 6Hrs. 7:11:59 Skin Breakdown- none noted or reported 7:11:59 Patient Warmer Placed on the Table. 7:12:00 Escobar Prominences Protected 7:12:02 A # 20 IV was noted in the Antecubital (right). Grade = 0 7:12:03 Patient arrived on IV Solutions via Peripheral IV. Pump/Drip Flow using NaCl .9. Assessment: Initial Case, HR=65 BPM, Rhythm=reg, XSFX=919/83 mmhg, Chest Pain=0, Edema=None, Col or=Normal, Skin = Warm, Dry Right Pulses: Hi Ped=3, Femoral=2 Left Pulses: Hi Ped=3, Femoral=2 7:12:05 Lower Right Extremities: Color=Normal Lower Left Extremities: Color=Normal Neurological: State=Alert, Ox3, WEEKS Respiration: Resp=10 B/min, SpO2=96 % 7:12:05 History and physical on the chart or being dictated. Vitals capture started with the following parameters, Patient=Adult, Interval=5 min, Initial Pre lndtb=607 mmHg, 7:16:59 Deflation Rate=5 mmHg, Cuff placed on Left Arm 7:18:14 HR=60 bpm, ITFC=358/83 mmhg, SpO2=97.0 %, Resp=3 B/min, Pain=0, John=10, Robertson=2 7:22:42 HR=56 bpm, ZZPS=707/81 mmhg, SpO2=97.0 %, Resp=19 B/min, Pain=0, John=10, Robertson=2 7:23:40 Reference ECG taken 7:24:25 Bilateral groins prepped with 2% chlorhexidine, and draped after a 3 minute waiting time. 7:27:37 HR=60 bpm, GXVN=309/81 mmhg, SpO2=98.0 %, Resp=15 B/min, Pain=0, John=10, Robertson=2 7:32:22 Pressure channel 1 zeroed. 7:32:40 HR=62 bpm, FMJO=616/85 mmhg, SpO2=97.0 %, Resp=8 B/min, Pain=0, John=10, Robertson=2 7:33:34 MD paged 7:36:44 MD arrived 7:37:44 HR=60 bpm, ABMZ=899/83 mmhg, SpO2=96.0 %, Resp=12 B/min, Pain=0, John=10, Robertson=2 7:41:23 1 mg VERSED given in lab by Henry Dorado RN via Peripheral IV. Time Out. Correct patient, correct procedure, correct physician, labs, allergies, and equipment verified with laborer bituminous paving 7:41:32 team present. Fire risk assesment completed (see hard stop sheet for coding). Time Out Concu rred by MD and individual staff in procedure. 7:41:57 Case Start 7:42:41 HR=63 bpm, ZIQI=851/86 mmhg, SpO2=97.0 %, Resp=11 B/min, Pain=0, John=10, Robertson=2 7:42:43 25 mcg FENTANYL given in lab by Henry Dorado RN via Peripheral IV. 7:43:22 1 mg VERSED given in lab by Henry Dorado RN via Peripheral IV. 7:46:18 20 mL 1% XYLOCAINE given in lab by Nam Man in Right Groin via Subcutaneous. 7:47:33 1 l/min OXYGEN given in lab by Henry Dorado RN via Nasal. 7:47:48 HR=56 bpm, SFEV=307/69 mmhg, SpO2=84.0 %, Resp=10 B/min, Pain=0, John=10, Robertson=2 A INTRODUCER SET, MICROPUNCTURE STIFF FR 5 was advanced into the Fem Art (right) using the [place] gongora 7:49:08 technique. A SHEATH, FR6 TERUMO (10CM) FR 6 was exchanged in the Fem Art (right). This was necessary in ord er to 7:50:38 accomodate a larger catheter. A JL 4.0 INFINITI CATHETER FR 6 was advanced over a wire. OMNIPAQUE, 350 MG, 150ML 150ML was use d for 7:50:49 injections. Recorded Pressure: Ao, HR=21, Condition=Condition 1 7:52:01 (Aorta) Ao 143/69/96 7:52:13 The LCA was injected and visualized at various angles. OMNIPAQUE, 350 MG, 150ML 150ML used. 7:53:13 HR=68 bpm, NAJM=209/70 mmhg, SpO2=97.0 %, Resp=7 B/min, Pain=0, John=10, Robertson=2 7:55:56 Catheter was removed A 3DRC INFINITI CATHETER FR 6 was advanced over a wire. OMNIPAQUE, 350 MG, 150ML 150ML was used for 7:55:59 injections. 7:57:48 The RCA was injected and visualized at various angles. OMNIPAQUE, 350 MG, 150ML 150ML used. 7:57:55 Catheter was removed 7:58:17 HR=76 bpm, UICR=024/72 mmhg, SpO2=97.0 %, Resp=5 B/min, Pain=0, John=10, Robertson=2 A PIGTAIL ANG. 145 INFINITI CATHETER FR 6 was advanced over a wire. OMNIPAQUE, 350 MG, 150ML 150 ML was 8:02:06 used for injections. 8:02:45 HR=64 bpm, QGIN=431/66 mmhg, SpO2=98.0 %, Resp=11 B/min, Pain=0, John=10, Robertson=2 8:03:34 Reference ECG taken Recorded Pressure: LV, HR=50, Condition=Condition 1 8:03:38 (Left Ventricle) LV 136/8/13 Recorded Pressure: LV, HR=68, Condition=Condition 1 8:04:12 (Left Ventricle) LV 131/8/12 8:05:33 The LV was injected at 10 cc/sec for a total of 30. OMNIPAQUE, 350 MG, 150ML 150ML used. Recorded Pressure: LV, Ao, HR=69, Condition=Condition 1 8:06:02 (Left Ventricle) LV 131/3/9, (Aorta) Ao 141/66/97 8:06:15 Catheter was removed 8:07:26 An injection in the Fem Art (right) was made through the SHEATH, FR6 TERUMO (10CM) FR 6. 8:07:44 HR=68 bpm, ZXHV=443/78 mmhg, SpO2=98.0 %, Resp=7 B/min, Pain=0, John=10, Robertson=2 8:09:17 ANGIOSEAL, FR6 VIP FR 6 placement in the Fem Art (right) 8:11:06 Case End (Physician broke scrub) 8:12:43 HR=68 bpm, OVTP=718/80 mmhg, SpO2=97.0 %, Resp=4 B/min, Pain=0, John=10, Robertson=2 8:13:01 Catheter(s) removed without difficulty 8:13:09 No case complications noted. 8:13:18 Bedside Report will be given. 8:13:19 Implantable Device card placed in patient's chart. 8:13:22 A Left Heart Cath was performed. 8:16:27 Sterile dressing applied to site 8:17:44 HR=65 bpm, HGXF=535/76 mmhg, SpO2=98.0 %, Resp=10 B/min, Pain=0, John=10, Robertson=2 8:19:32 Vitals capture stopped. End Study - Contrast Media Used In Study Contrast Total Opened (mL) Total Used (mL) Total Wasted (mL) Omnipaque 350 155 155 0 End Study - Maximum Contrast Load Max Contrast Load (mL) 270.8 End Study - Radiation Exposure Fluoro Time Fluoro Dose (mGy) Cine Dose (uGym2) (minutes) 2.4 743 [id number] End Study - Sheaths Sheaths Pulled By Sheath Hold Time (min) Nam Man End Study - Patient Disposition Complications Transferred To Interventional Outcome No [facility] Holding No attempt made
[2018-06-01] MEDS ORDERED: Sod Chloride 0.9% Inj 1,000 ML IV.CONT SCH (08:30)
[2018-06-01] MEDS ORDERED: Atenolol 25 MG Tablet PO SCH (09:00)
--- NOTE | 2018-06-01 09:08 | MA ---
cc: Nam Man MD, Joshua A MD DATE: 06/01/2018 PROCEDURE PERFORMED: Left heart catheterization, left ventriculography, coronary angiography, right femoral angiography with Angio-Seal placement. DESCRIPTION OF PROCEDURE: The patient was brought to the cardiac catheterization lab in fasting state. She was extremely nervous. I ended up giving her 2 mg of Versed and 25 mcg of fentanyl. Using 1% lidocaine for local anesthesia, a 6.5-Bhutanese sheath was inserted in the right femoral artery requiring a micropuncture set. Next, coronary angiography was completed using a left 4 Jose Antonio for the left coronary artery and a 3DRC for the right coronary artery. I broke scrub and stated her angiograms. I thought the best approach would be to treat her medically. I then went back and did an LV gram and a pullback followed by a right femoral angiography with Angio-Seal placement. There were no complications. FINDINGS: 1. HEMODYNAMICS: Left ventricular pressure was 131/3 with an end-diastolic pressure of 9. Aortic pressure was 141/66 with a mean of 97. There was no gradient during pullback. 2. LEFT VENTRICULOGRAPHY: Left ventriculography shows a symmetrical jerrod left ventricle with an estimated ejection fraction of 50%. There is no mitral regurgitation. There is evidence for extensive stenting, including the proximal LAD, the entire circumflex vessel down into the left posterior descending artery branch. 3. CORONARY ANGIOGRAPHY: Left main coronary artery appears normal. It bifurcates into the LAD and circumflex vessels. The LAD has about a 20% ostial stenosis. There is a widely patent proximal LAD stent. The mid LAD has about 20% irregularity. The diagonal branches off the LAD are small. The LAD stops at the left ventricular apex. The circumflex artery is dominant. It gives off a very early obtuse marginal branch, which bifurcates. This marginal branch has about 50% ostial stenosis. Second marginal branch is very small. The third branch technically should be probably called a posterolateral branch. It has about 50% ostial disease. The next branch is a very large posterolateral vessel which appears normal. There were a couple additional small branches and then there was the left posterior descending artery branch. The left posterior descending artery branch has also been stented proximally. It has about a 60% in-stent restenosis, but the vessel size appears smaller than 2 mm. The right coronary artery is nondominant, very small caliber, with an 80% proximal stenosis. CONCLUSIONS: 1. Low normal left ventricular function, estimated ejection fraction of 50%. 2. Left dominant circulation. 3. The patient has had multiple previous stents, all of which appear widely patent. 4. She does have some disease in the distal circumflex and some ostial disease of the marginal branches, none of which appear critical and it looks most appropriate that this should be managed with medical therapy, PLAN: The patient has been on beta cori and Ranexa. I am going to add a long-acting Imdur. I will have her follow up with Dr. Gardner in his office. MD DOROTHY Villareal/kassy , 08:24 AM , 08:32 AM
[2018-06-01] MEDS: Ranolazine 500 MG 12HR ER Tablet PO SCH (11:22)
[2018-06-01] MEDS: Atenolol 25 MG Tablet PO SCH (11:23)
[2018-06-01] MEDS: amLODIPine 5 MG Tablet PO SCH (11:23)
[2018-06-01] MEDS: Senna/Docusate Sodium 8.6/50 MG Tablet PO SCH (11:28)
--- NOTE | 2018-06-01 11:35 | P.PNIM ---
Subjective Interval history: back from cath no complains Physical Exam Vital signs: Vital Signs 05/31/18 13:28 05/31/18 14:12 05/31/18 16:00 Temperature 97.8 F Pulse Rate 65 Respiratory Rate 18 Blood Pressure 151/73 H 138/74 Pulse Oximetry 99 95 05/31/18 20:00 06/01/18 00:00 06/01/18 01:00 Temperature 98.1 F 98.3 F Pulse Rate 55 L 62 Respiratory Rate 16 16 Blood Pressure 132/72 121/69 Pulse Oximetry 94 L 96 98 06/01/18 04:00 06/01/18 08:29 06/01/18 10:57 Temperature 97.7 F Pulse Rate 59 L Respiratory Rate 16 Blood Pressure 139/75 Pulse Oximetry 96 97 98 Intake & Output 05/31/18 06/01/18 06/01/18 18:59 06:59 18:59 Intake Total 440 / 440 1000 / 1000 Balance 440 / 440 1000 / 1000 Weight 70.4 kg 70.4 kg Intake: IV 200 / 200 1000 / 1000 NS Inj 1,000 ML @ 100 mls/hr IV 1000 / 1000 .CONT .Q10H [facility] Rx#:[id number] Magnesium Sulfate 1 gm/D5W 100 200 / 200 ml Premix 100 ML @ 100 mls/hr IV.SIG Q1H [facility]ON Rx#:[id number] Oral 240 / 240 Other: # Voids 1 3 Weight On Admission 70.4 kg Narrative: awake and alet, no distress anciteric lungs-clear regular rhythm abdomens-ft right groin- no hematoma good epripheral pulses neuro exam- unramrkable Results Labs CBC & Chem 7: 05/31/18 10:30 05/31/18 10:30 Assessment and Plan (1) H/O: hysterectomy: Code(s): Z90.710 - Acquired absence of both cervix and uterus Status: Acute Plan CAD S/p multiple stents in the past. EKG with NSR, no ischemia. CXR unremarkable. S/P cardiac cath 06/01- no intervention -Continue cardiac regimen including aspirin, Plavix, atenolol and Ranexa. - add Imdru 30 mg daily- per cardioogy recommendation- cleared for DC today- OP ff up with [employer]- Dr. Gardner Hypertensive emergency- better readings Blood pressure was 223/105 in the emergency department. -Pain control. -Continue atenolol. -Added amlodipine 5 mg p.o. daily. -Clonidine as needed. Renal insufficiency Unsure of baseline. Creatinine 1.19 in July. -IV fluids and monitor BMP. -Avoid nephrotoxins. -Hold hydrochlorothiazide. Diabetes Ruled at this time. -Hold Trulicity and metformin. -Insulin sliding scale. -d/w wiht- she knows to not start metformin 48 hours post cath PPx: Heparin dC home today Progress Note: Quality VTE Deep Vein Thrombosis/Pulmonary Embolism Present on Admission: No
[2018-06-01] MEDS: oxyCODONE/Acetaminophen 10/325 Tablet PO PRN (11:36)
[2018-06-01] MEDS ORDERED: Isosorbide Mononitrate 30 MG ER 24HR Tablet (Imdur) PO SCH (12:00)
[2018-06-01 12:03] LABS: Baso % (Auto) 0.4 % (0.0-2.0); Eos # (Auto) 0.1 th/mm3 (0.0-0.4); Eos % (Auto) 1.3 % (0.0-4.0); Hematocrit 33.4 % (35.0-46.0); Hemoglobin 11.4 gm/dL (11.6-15.3); Lymph # (Auto) 1.6 th/mm3 (1.0-4.8); Lymph % (Auto) 36.6 % (9.0-44.0); Mean Corpuscular Volume 91.1 fL (80.0-100.0); Mean Platelet Volume 10.3 fL (7.0-11.0); Mono # (Auto) 0.5 th/mm3 (0.0-0.9); Mono % (Auto) 10.7 % (0.0-8.0); Neut # (Auto) 2.2 th/mm3 (1.8-7.7); Platelet Count 150 th/mm3 (150-450); Red Blood Count 3.67 mil/mm3 (4.00-5.30); Red Cell Distribution Width 13.7 % (11.6-17.2); White Blood Count 4.4 th/mm3 (4.0-11.0)
[2018-06-01 12:31] LABS: Alanine Aminotransferase 21 U/L (10-53); Albumin 3.3 g/dL (3.4-5.0); Alkaline Phosphatase 61 U/L (45-117); Anion Gap 8 meq/L (5-15); Aspartate Aminotransferase 16 U/L (15-37); Blood Urea Nitrogen 18 mg/dL (7-18); Calcium 8.7 mg/dL (8.5-10.1); Carbon Dioxide 30.3 meq/L (21.0-32.0); Chloride 102 meq/L (98-107); Glomerular Filtration Rate 49 mL/min (>89); Glucose,Random 103 mg/dL (74-106); Sodium 140 meq/L (136-145); Total Protein 6.8 g/dL (6.4-8.2)
[2018-06-01 19:03] VITALS: BP 146/78; PULSE 66; RESP 20; TEMP 97.3; O2SAT 96
--- NOTE | 2018-06-02 06:55 | ECG ---
Date Performed: 05/31/2018 Time Performed: 10:43:52 PTAGE: 62 years EKG: Sinus rhythm NORMAL ECG PREVIOUS TRACING : 08/07/2017 12.08 Since the previous tracing, no significant change noted DOCTOR: Librado Singh Interpretating Date/Time 06/02/2018 06:54:53
[2018-06-02] MEDS ORDERED: Isosorbide Mononitrate 30 MG ER 24HR Tablet (Imdur) PO SCH (11:30)
== END 2018-06-01 12:49 | disposition home or self-care (01) ==
LOC: NEDA 10:12 → NEPD 10:12 → N04 15:48
PROVIDERS: ADMIT Internal Medicine; ATTEND Internal Medicine
DX: Z79.84 Long term (current) use of oral hypoglycemic drugs; E78.5 Hyperlipidemia, unspecified; N28.9 Disorder of kidney and ureter, unspecified; I16.1 Hypertensive emergency; K21.9 Gastro-esophageal reflux disease without esophagitis; I25.110 Atherosclerotic heart disease of native coronary artery with unstable angina pectoris; Z79.82 Long term (current) use of aspirin; Z79.02 Long term (current) use of antithrombotics/antiplatelets; E11.9 Type 2 diabetes mellitus without complications; Z87.891 Personal history of nicotine dependence; Z79.899 Other long term (current) drug therapy; I10 Essential (primary) hypertension; Z95.5 Presence of coronary angioplasty implant and graft
CPT/HCPCS: 71010; 71045; 80053; 82550; 82948; 82962; 83520; 83735; 83880; 84484; 85025; 85610; 85730; 93005; 93458; 96361; 96365; 96366; 96375; 96376; 99152; 99153; 99285; C1760; C1769; C1893; G0269; G0378; J1170; J1644; J2250; J2405; J3010; J3475; J7030; Q9967